=== PATIENT | female | born 1965 | race Caucasian/White ===

== ENCOUNTER 2017-06-15 14:13 | Emergency (ER) | payer MEDICAID, OTHER ==
[~2017-06-15] VITALS: Ht 154.9 cm; Wt 96.2 kg
[2017-06-15 15:41] VITALS: BP 127/79
[2017-06-15] MEDS ORDERED: KETOROLAC TROMETH 60MG/2ML VIAL IM ONE (16:00)
[2017-06-15] MEDS ORDERED: MEPERIDINE HCL (50 MG/ML) 1 ML VIAL IM ONE (17:00)
[2017-06-15] MEDS ORDERED: PROMETHAZINE HCL 25 MG/ML 1ML IM ONE (17:00)
== END 2017-06-15 17:41 | disposition home or self-care (01) ==
LOC: ER 14:21
DX: S16.1XXA Strain of muscle, fascia and tendon at neck level, initial encounter (principal); S76.012A Strain of muscle, fascia and tendon of left hip, initial encounter; S80.01XA Contusion of right knee, initial encounter; F17.210 Nicotine dependence, cigarettes, uncomplicated; Z88.8 Allergy status to other drugs, medicaments and biological substances; W01.0XXA Fall on same level from slipping, tripping and stumbling without subsequent striking against object, initial encounter; Y93.89 Activity, other specified; Y99.8 Other external cause status; Y92.89 Other specified places as the place of occurrence of the external cause
CPT/HCPCS: 72040; 73502; 96372; 99284; J1885; J2175; J2550

== ENCOUNTER 2017-11-04 13:36 | Inpatient (IN) | payer MEDICAID ==
[~2017-11-04] VITALS: Ht 154.9 cm; Wt 122.9 kg
[2017-11-04 14:27] LABS: Basophils # (auto) 0.1 uL; Eosinophils # (auto) 0.4 uL; Hemoglobin 11.6 g/dL (12.2-16.2); Lymphocytes # (auto) 2.4 uL; Monocytes # (auto) 0.4 uL; Neutrophils % (auto) 58.5 % (37.0-80.0); Nucleated Red Blood Cells % 0.1 %
[2017-11-04 14:29] LABS: Basophils % (auto) 1.1 % (0.0-2.0); Eosinophils % (auto) 4.7 % (0.0-7.0); Hematocrit 35.2 % (36.0-46.0); Lymphocytes % (auto) 30.4 % (10.0-50.0); Mean Corpuscular Hemoglobin 24.6 pg (28.0-32.0); Mean Corpuscular Hgb Conc. 32.9 g/dL (32.0-36.0); Mean Corpuscular Volume 74.6 fL (80.0-100.0); Monocytes % (auto) 5.3 % (0.0-12.0); Neutrophils # (auto) 4.6 uL; Platelet Count (auto) 288 10^3/uL (140-450); Red Blood Cells 4.71 10^6/uL (4.0-5.20); Red Cell Distribution Width 15.5 % (11.8-14.3); White Blood Cell 7.9 10^3/uL (4.4-10.8)
[2017-11-04 14:46] LABS: Albumin 3.5 g/dL (3.4-5.0); Bilirubin, Total 0.2 mg/dL (0.2-1.0); Calcium 8.3 mg/dL (8.5-10.1); Potassium 4.4 mmol/L (3.5-5.1); Total Protein 8.3 g/dL (6.4-8.2)
[2017-11-04] MEDS ORDERED: SODIUM CHLORIDE 0.9% 500 ML IV ONE (17:01)
[2017-11-04] MEDS ORDERED: FLEET ENEMA(ADULT) 135 ML PR ONE (17:15)
[2017-11-04] MEDS ORDERED: DEXTROSE (50%) 50ML SYRG IV PRN (17:45)
[2017-11-04] MEDS ORDERED: TEMAZEPAM 15 MG CAP PO PRN (17:45)
[2017-11-04] MEDS ORDERED: ACETAMINOPHEN 500 MG TAB PO PRN (17:45)
[2017-11-04] MEDS: SODIUM CHLORIDE 0.9% 1,000 ML IV SCH (18:07)
[2017-11-04 18:30] LABS: CRP High Sensitivity 0.88 mg/dL (< 0.3)
[2017-11-04 19:30] VITALS: BP 107/73
[2017-11-04 19:54] LABS: Urine Bacteria FEW /hpf (None Seen); Urine Blood Negative /uL (Negative); Urine Mucus FEW (None Seen); Urine WBC <1 /hpf (0 - 5)
[2017-11-04 21:58] LABS: Hematocrit 33.7 % (36.0-46.0)
[2017-11-04] MEDS: FAMOTIDINE 20 MG TAB PO SCH (22:08)
[2017-11-04] MEDS: LACTULOSE 20Gm/30ML SOLN PO SCH (22:08)
[2017-11-04] MEDS: InsuLIN REG 1unit/0.01ml Soln (100units/ml) SC SCH (22:24)
[2017-11-04] MEDS: ACCU-CHEK COMFORT CURVE STRIP VI SCH (22:24)
[2017-11-05] MEDS ORDERED: HYDR50TA69 PO (00:07)
[2017-11-05] MEDS ORDERED: SERT-160 PO (00:07)
[2017-11-05] MEDS ORDERED: METH750T3 PO (00:07)
[2017-11-05] MEDS ORDERED: OMEP20CA74 PO (00:07)
[2017-11-05] MEDS ORDERED: ASPI81TA27 PO (00:07)
[2017-11-05] MEDS ORDERED: [UNRECOGNIZED DRUG - CODE] PO (00:07)
[2017-11-05] MEDS ORDERED: CYCL1TAB18 PO (00:07)
[2017-11-05] MEDS ORDERED: GABA100C9 PO (00:07)
[2017-11-05] MEDS ORDERED: ATE50T PO (00:07)
[2017-11-05] MEDS ORDERED: OXCA600T3 PO (00:07)
[2017-11-05] MEDS ORDERED: GLIM2TAB33 PO (00:07)
[2017-11-05] MEDS ORDERED: MORP60TA25 PO (00:07)
[2017-11-05] MEDS ORDERED: ZIPR80CA8 PO (00:07)
[2017-11-05 00:16] VITALS: BP 107/73
[2017-11-05 01:52] LABS: Hemoglobin 10.8 g/dL (12.2-16.2)
[2017-11-05 01:54] LABS: Hematocrit 32.9 % (36.0-46.0)
[2017-11-05] MEDS: SODIUM CHLORIDE 0.9% 1,000 ML IV SCH ×3 (03:32→22:48)
[2017-11-05 05:00] VITALS: BP 108/68
[2017-11-05] MEDS: InsuLIN REG 1unit/0.01ml Soln (100units/ml) SC SCH ×4 (06:19→21:35)
[2017-11-05] MEDS: ACCU-CHEK COMFORT CURVE STRIP VI SCH ×4 (06:19→21:31)
[2017-11-05 08:02] LABS: Basophils # (auto) 0.1 uL; Neutrophils # (auto) 4.4 uL; Platelet Count (auto) 249 10^3/uL (140-450); Red Cell Distribution Width 15.2 % (11.8-14.3)
[2017-11-05 08:05] LABS: Basophils % (auto) 1.1 % (0.0-2.0); Eosinophils # (auto) 0.4 uL; Hematocrit 33.4 % (36.0-46.0); Lymphocytes % (auto) 28.4 % (10.0-50.0); Mean Corpuscular Hemoglobin 24.7 pg (28.0-32.0); Mean Corpuscular Hgb Conc. 32.8 g/dL (32.0-36.0); Mean Corpuscular Volume 75.3 fL (80.0-100.0); Monocytes # (auto) 0.3 uL; Monocytes % (auto) 4.6 % (0.0-12.0); Neutrophils % (auto) 60.9 % (37.0-80.0); Red Blood Cells 4.44 10^6/uL (4.0-5.20); White Blood Cell 7.2 10^3/uL (4.4-10.8)
[2017-11-05 09:00] VITALS: BP 109/66
[2017-11-05] MEDS: LACTULOSE 20Gm/30ML SOLN PO SCH ×2 (09:39→21:13)
[2017-11-05] MEDS: FAMOTIDINE 20 MG TAB PO SCH ×2 (09:39→21:14)
[2017-11-05] MEDS: MORPHINE SULFATE 4 MG/ML SYR/VIAL IV PRN ×2 (09:40→14:00)
[2017-11-05] MEDS: ZIPRASIDONE 60 MG PO SCH (10:00)
[2017-11-05 13:00] VITALS: BP 126/69
[2017-11-05] MEDS: LORazepam 0.5 MG TAB PO PRN (13:12)
[2017-11-05] MEDS: FLEET ENEMA(ADULT) 135 ML PR ONE ×2 (16:00→18:07)
[2017-11-05] MEDS: GOLYTELY 4L KIT PO ONE ×2 (16:00→18:07)
[2017-11-05] MEDS ORDERED: ASPirin-EC 81 mg tab PO ONE (16:00)
[2017-11-05 17:00] VITALS: BP 104/59
[2017-11-05] MEDS: LIDOCAINE 5% TOPICAL PATCH TOP SCH (18:07)
[2017-11-05] MEDS ORDERED: AMIT25TA9 PO (18:42)
[2017-11-05] MEDS ORDERED: CYCLOBENZAPRINE HCL 10 MG TAB PO PRN (20:00)
[2017-11-05] MEDS: AMITRIPTYLINE HCL 25 MG TAB PO SCH (21:13)
[2017-11-05] MEDS: GABAPENTIN 400 MG CAP PO SCH (21:13)
[2017-11-05] MEDS: METHOCARBAMOL 500 MG TAB PO SCH (21:14)
[2017-11-05] MEDS: OXcarbazepine 300 MG TAB PO SCH (21:14)
[2017-11-05] MEDS: MORPHINE SULF 30 mg ER tab PO SCH (21:14)
[2017-11-05 22:00] VITALS: BP 125/62
[2017-11-06] MEDS: HYDROmorphone HCL 2 MG TAB PO PRN ×3 (00:29→14:06)
[2017-11-06] MEDS: PROMETHAZINE HCL 25 MG/ML 1ML IV PRN ×3 (01:01→16:51)
[2017-11-06] MEDS: LORazepam 0.5 MG TAB PO PRN ×2 (05:06→18:16)
[2017-11-06 05:38] VITALS: BP 113/54
[2017-11-06] MEDS: METHOCARBAMOL 500 MG TAB PO SCH ×3 (06:23→22:08)
[2017-11-06] MEDS: InsuLIN REG 1unit/0.01ml Soln (100units/ml) SC SCH ×4 (06:23→22:09)
[2017-11-06] MEDS: ACCU-CHEK COMFORT CURVE STRIP VI SCH ×4 (06:24→22:09)
[2017-11-06 06:53] LABS: Basophils # (auto) 0.1 uL; Basophils % (auto) 0.9 % (0.0-2.0); Eosinophils # (auto) 0.4 uL; Hemoglobin 10.7 g/dL (12.2-16.2); Monocytes # (auto) 0.4 uL; Neutrophils % (auto) 54.4 % (37.0-80.0)
[2017-11-06 06:55] LABS: Eosinophils % (auto) 5.4 % (0.0-7.0); Hematocrit 32.6 % (36.0-46.0); Lymphocytes # (auto) 2.3 uL; Lymphocytes % (auto) 32.9 % (10.0-50.0); Mean Corpuscular Hemoglobin 24.5 pg (28.0-32.0); Mean Corpuscular Hgb Conc. 32.8 g/dL (32.0-36.0); Mean Corpuscular Volume 74.7 fL (80.0-100.0); Monocytes % (auto) 6.4 % (0.0-12.0); Neutrophils # (auto) 3.8 uL; Platelet Count (auto) 239 10^3/uL (140-450); Red Blood Cells 4.37 10^6/uL (4.0-5.20); Red Cell Distribution Width 15.4 % (11.8-14.3); White Blood Cell 6.9 10^3/uL (4.4-10.8)
[2017-11-06 07:08] LABS: BUN/Creatinine Ratio 13.3; Calcium 8.3 mg/dL (8.5-10.1); Potassium 3.8 mmol/L (3.5-5.1)
[2017-11-06 08:02] VITALS: BP 132/78
[2017-11-06] MEDS: OXcarbazepine 300 MG TAB PO SCH ×2 (09:07→22:08)
[2017-11-06] MEDS: ASPirin-EC 81 mg tab PO SCH (09:07)
[2017-11-06] MEDS: GABAPENTIN 400 MG CAP PO SCH ×2 (09:07→22:07)
[2017-11-06] MEDS: FAMOTIDINE 20 MG TAB PO SCH ×2 (09:08→22:08)
[2017-11-06] MEDS: LACTULOSE 20Gm/30ML SOLN PO SCH ×2 (09:08→22:06)
[2017-11-06] MEDS: SERTRALINE HCL 50 MG TAB PO SCH (09:08)
[2017-11-06] MEDS: LIDOCAINE 5% TOPICAL PATCH TOP SCH (09:08)
[2017-11-06] MEDS: GOLYTELY 4L KIT PO ONE ×2 (09:30→10:29)
[2017-11-06] MEDS ORDERED: FLEET ENEMA(ADULT) 135 ML PR ONE (09:30)
[2017-11-06] MEDS: SODIUM CHLORIDE 0.9% 1,000 ML IV SCH (09:32)
[2017-11-06] MEDS: ZIPRASIDONE 60 MG PO SCH ×3 (10:00→22:06)
[2017-11-06] MEDS: ATENOLOL 50MG TABLET PO SCH (10:00)
[2017-11-06 12:06] VITALS: BP 120/82
[2017-11-06] MEDS: HYDROcodone-ACET 5/325MG TAB PO PRN (16:53)
[2017-11-06 17:02] VITALS: BP 133/91
[2017-11-06 22:00] VITALS: BP 122/76
[2017-11-06] MEDS: SENNA 8.6 MG TAB PO SCH (22:08)
[2017-11-06] MEDS: MORPHINE SULF 30 mg ER tab PO SCH (22:08)
[2017-11-06] MEDS: AMITRIPTYLINE HCL 25 MG TAB PO SCH (22:20)
[2017-11-07] MEDS: SODIUM CHLORIDE 0.9% 1,000 ML IV SCH ×3 (00:05→15:32)
[2017-11-07] MEDS: LORazepam 0.5 MG TAB PO PRN ×3 (00:05→20:49)
[2017-11-07] MEDS: HYDROmorphone HCL 2 MG TAB PO PRN ×2 (00:27→06:28)
[2017-11-07 04:55] VITALS: BP 106/63
[2017-11-07] MEDS: HYDROcodone-ACET 5/325MG TAB PO PRN (05:33)
[2017-11-07] MEDS: METHOCARBAMOL 500 MG TAB PO SCH ×3 (06:26→22:30)
[2017-11-07] MEDS: InsuLIN REG 1unit/0.01ml Soln (100units/ml) SC SCH ×4 (06:27→22:31)
[2017-11-07 06:58] LABS: Basophils # (auto) 0.1 uL; Basophils % (auto) 1.2 % (0.0-2.0); Eosinophils # (auto) 0.4 uL; Hemoglobin 10.8 g/dL (12.2-16.2); Lymphocytes # (auto) 2.2 uL; Red Blood Cells 4.35 10^6/uL (4.0-5.20)
[2017-11-07] MEDS: ACCU-CHEK COMFORT CURVE STRIP VI SCH ×4 (07:00→22:32)
[2017-11-07 07:01] LABS: Eosinophils % (auto) 5.5 % (0.0-7.0); Hematocrit 32.4 % (36.0-46.0); Lymphocytes % (auto) 33.7 % (10.0-50.0); Mean Corpuscular Hemoglobin 24.9 pg (28.0-32.0); Mean Corpuscular Hgb Conc. 33.4 g/dL (32.0-36.0); Mean Corpuscular Volume 74.5 fL (80.0-100.0); Monocytes # (auto) 0.4 uL; Monocytes % (auto) 5.6 % (0.0-12.0); Neutrophils # (auto) 3.5 uL; Nucleated Red Blood Cells % 0.2 %; Platelet Count (auto) 226 10^3/uL (140-450); Red Cell Distribution Width 15.1 % (11.8-14.3); White Blood Cell 6.5 10^3/uL (4.4-10.8)
[2017-11-07 07:03] LABS: BUN/Creatinine Ratio 10.9; Calcium 8.6 mg/dL (8.5-10.1)
[2017-11-07 08:00] VITALS: BP 132/79
[2017-11-07] MEDS ORDERED: LACT10SO3 PO (08:21)
[2017-11-07] MEDS ORDERED: SENN-51 PO (08:21)
[2017-11-07] MEDS: ZIPRASIDONE 60 MG PO SCH ×2 (10:00→22:00)
[2017-11-07] MEDS: ATENOLOL 50MG TABLET PO SCH (10:00)
[2017-11-07] MEDS: GABAPENTIN 400 MG CAP PO SCH ×2 (10:30→22:29)
[2017-11-07] MEDS: LIDOCAINE 5% TOPICAL PATCH TOP SCH (10:30)
[2017-11-07] MEDS: FAMOTIDINE 20 MG TAB PO SCH ×2 (10:30→22:30)
[2017-11-07] MEDS: LACTULOSE 20Gm/30ML SOLN PO SCH ×2 (10:30→22:28)
[2017-11-07] MEDS: ASPirin-EC 81 mg tab PO SCH (10:30)
[2017-11-07] MEDS: SERTRALINE HCL 50 MG TAB PO SCH (10:30)
[2017-11-07] MEDS: OXcarbazepine 300 MG TAB PO SCH ×2 (10:31→22:31)
[2017-11-07] MEDS ORDERED: GOLYTELY 4L KIT PO ONE (11:15)
[2017-11-07 12:00] VITALS: BP 128/82
[2017-11-07 12:53] LABS: INR 0.94 (0.9-1.15); Partial Thromboplastin Time 24.3 sec (22.64-33.71); Prothrombin Time 10.2 sec (9.37-12.3)
[2017-11-07 17:00] VITALS: BP 96/61
[2017-11-07 21:57] VITALS: BP 127/77
[2017-11-07] MEDS: AMITRIPTYLINE HCL 25 MG TAB PO SCH (22:29)
[2017-11-07] MEDS: MORPHINE SULF 30 mg ER tab PO SCH (22:29)
[2017-11-07] MEDS: SENNA 8.6 MG TAB PO SCH (22:31)
[2017-11-08] MEDS: SODIUM CHLORIDE 0.9% 1,000 ML IV SCH (01:32)
[2017-11-08 05:39] VITALS: BP 139/77
[2017-11-08] MEDS: METHOCARBAMOL 500 MG TAB PO SCH (06:53)
[2017-11-08] MEDS: InsuLIN REG 1unit/0.01ml Soln (100units/ml) SC SCH ×2 (06:53→11:30)
[2017-11-08] MEDS: ACCU-CHEK COMFORT CURVE STRIP VI SCH ×2 (06:54→11:30)
[2017-11-08 07:17] LABS: Basophils # (auto) 0.1 uL; Hemoglobin 11.3 g/dL (12.2-16.2); Lymphocytes # (auto) 1.7 uL; Mean Corpuscular Hgb Conc. 32.3 g/dL (32.0-36.0); Mean Corpuscular Volume 74.8 fL (80.0-100.0)
[2017-11-08 07:20] LABS: Basophils % (auto) 0.4 % (0.0-2.0); Eosinophils # (auto) 0.3 uL; Eosinophils % (auto) 1.7 % (0.0-7.0); Hematocrit 34.8 % (36.0-46.0); Lymphocytes % (auto) 10.3 % (10.0-50.0); Mean Corpuscular Hemoglobin 24.1 pg (28.0-32.0); Monocytes # (auto) 0.6 uL; Monocytes % (auto) 3.7 % (0.0-12.0); Neutrophils # (auto) 13.8 uL; Neutrophils % (auto) 83.9 % (37.0-80.0); Platelet Count (auto) 274 10^3/uL (140-450); Red Blood Cells 4.66 10^6/uL (4.0-5.20); Red Cell Distribution Width 15.2 % (11.8-14.3); White Blood Cell 16.5 10^3/uL (4.4-10.8)
[2017-11-08 07:30] LABS: BUN/Creatinine Ratio 9.2; Calcium 9.1 mg/dL (8.5-10.1); Potassium 4.1 mmol/L (3.5-5.1)
[2017-11-08 08:51] VITALS: BP 134/77
[2017-11-08] MEDS: FAMOTIDINE 20 MG TAB PO SCH (10:00)
[2017-11-08] MEDS: ATENOLOL 50MG TABLET PO SCH (10:00)
[2017-11-08] MEDS: ZIPRASIDONE 60 MG PO SCH (10:00)
[2017-11-08] MEDS: LACTULOSE 20Gm/30ML SOLN PO SCH (10:00)
[2017-11-08] MEDS: GABAPENTIN 400 MG CAP PO SCH (10:00)
[2017-11-08] MEDS ORDERED: fentaNYL CITRATE 100 MCG/2 ML VL ONE (11:49)
[2017-11-08] MEDS ORDERED: MEPERIDINE HCL (50 MG/ML) 1 ML VIAL ONE (11:49)
[2017-11-08] MEDS ORDERED: MIDAZOLAM HCL 1MG/1ML-2 ML VIAL ONE (11:49)
[2017-11-08] MEDS ORDERED: DEXAMETHASONE SOD PHOS 10MG/1ML VIAL INJ ONE (11:50)
[2017-11-08] MEDS ORDERED: PROPOFOL 10 MG/ML 20 ML IV ONE (11:50)
[2017-11-08 12:28] VITALS: BP 134/77
[2017-11-08] MEDS ORDERED: ePHEDrine SULFATE 50 MG/ML AMP IV PRN (12:30)
[2017-11-08] MEDS ORDERED: MIDAZOLAM HCL 1MG/1ML-2 ML VIAL IV PRN (12:30)
[2017-11-08] MEDS ORDERED: MORPHINE SULFATE 4 MG/ML SYR/VIAL IV PRN (12:30)
[2017-11-08] MEDS ORDERED: KETOROLAC TROMETH 30 MG/ML 1ML VIAL IV ONE (12:30)
[2017-11-08] MEDS ORDERED: LABETALOL HCL 5 MG/ML 4ML SYRINGE IV PRN (12:30)
[2017-11-08] MEDS ORDERED: ONDANSETRON HCL 4 MG/2 ML VIAL IV ONE (12:30)
[2017-11-08 13:00] VITALS: BP 128/76
[2017-11-08] MEDS ORDERED: MORPHINE SULFATE 4 MG/ML SYR/VIAL IV ONE (14:00)
== END 2017-11-08 15:00 | disposition home or self-care (01) | DRG 254 ==
LOC: ER 13:36 → EAST 13:37 → ER 18:27 → EAST 18:28
PROVIDERS: ADMIT Internal Medicine; ATTEND Internal Medicine
PROC: 0DJD8ZZ Inspection of Lower Intestinal Tract, Via Natural or Artificial Opening Endoscopic (ICD-10-PCS; principal; 2017-11-08 11:42)
DX: K59.03 Drug induced constipation (principal); I10 Essential (primary) hypertension; E11.9 Type 2 diabetes mellitus without complications; T40.605A Adverse effect of unspecified narcotics, initial encounter; G89.29 Other chronic pain; F17.210 Nicotine dependence, cigarettes, uncomplicated; M54.9 Dorsalgia, unspecified; F12.90 Cannabis use, unspecified, uncomplicated; M19.012 Primary osteoarthritis, left shoulder; K92.1 Melena; F41.9 Anxiety disorder, unspecified; G47.00 Insomnia, unspecified; K64.8 Other hemorrhoids; Z79.4 Long term (current) use of insulin; Z88.8 Allergy status to other drugs, medicaments and biological substances; Z90.49 Acquired absence of other specified parts of digestive tract; Z90.89 Acquired absence of other organs; Z98.51 Tubal ligation status; Y92.89 Other specified places as the place of occurrence of the external cause
CPT/HCPCS: 36415; 36600; 45378; 73030; 74176; 80048; 80053; 81001; 82150; 82805; 82962; 83036; 83690; 85014; 85018; 85025; 85610; 85652; 85730; 86141; 94761; 96360; J1100; J1815; J2250; J2704

== ENCOUNTER 2017-12-08 11:25 | Emergency (ER) | payer MEDICAID ==
[~2017-12-08] VITALS: Ht 154.9 cm; Wt 89.8 kg
[~2017-12-08 11:25] MED LIST: AMIT25TA9 PO; ASPI81TA27 PO; ATE50T PO; CYCL1TAB18 PO; GABA100C9 PO; GLIM2TAB33 PO; HYDR50TA69 PO; LACT10SO3 PO; METH750T3 PO; MORP60TA25 PO; OMEP20CA74 PO; OXCA600T3 PO; SENN-51 PO; SERT-160 PO; ZIPR80CA8 PO; [UNRECOGNIZED DRUG - CODE] PO
[2017-12-08 13:45] VITALS: BP 101/71
== END 2017-12-08 13:16 | disposition home or self-care (01) ==
LOC: ER 11:25
DX: L03.115 Cellulitis of right lower limb (principal); E11.9 Type 2 diabetes mellitus without complications; I10 Essential (primary) hypertension; F17.210 Nicotine dependence, cigarettes, uncomplicated; E78.5 Hyperlipidemia, unspecified; E07.9 Disorder of thyroid, unspecified; Z79.899 Other long term (current) drug therapy; Z79.82 Long term (current) use of aspirin; Z90.49 Acquired absence of other specified parts of digestive tract; Z98.51 Tubal ligation status
CPT/HCPCS: 73630

== ENCOUNTER 2017-12-24 13:53 | Emergency (ER) | payer MEDICAID ==
[~2017-12-24] VITALS: Ht 154.9 cm; Wt 89.8 kg
[2017-12-24 14:24] LABS: Basophils # (auto) 0.1 uL; Eosinophils # (auto) 0.6 uL; Monocytes # (auto) 0.4 uL
[2017-12-24 14:25] LABS: Eosinophils % (auto) 6.3 % (0.0-7.0); Hematocrit 36.3 % (36.0-46.0); Hemoglobin 11.9 g/dL (12.2-16.2); Lymphocytes # (auto) 2.5 uL; Lymphocytes % (auto) 26.3 % (10.0-50.0); Mean Corpuscular Hemoglobin 24.5 pg (28.0-32.0); Mean Corpuscular Hgb Conc. 32.7 g/dL (32.0-36.0); Mean Corpuscular Volume 75.1 fL (80.0-100.0); Monocytes % (auto) 4.3 % (0.0-12.0); Neutrophils # (auto) 5.9 uL; Neutrophils % (auto) 62.1 % (37.0-80.0); Platelet Count (auto) 307 10^3/uL (140-450); Red Blood Cells 4.84 10^6/uL (4.0-5.20); Red Cell Distribution Width 15.4 % (11.8-14.3); White Blood Cell 9.5 10^3/uL (4.4-10.8)
[2017-12-24 14:45] LABS: Albumin 3.6 g/dL (3.4-5.0); BUN/Creatinine Ratio 12.7; Bilirubin, Total 0.3 mg/dL (0.2-1.0); Calcium 8.5 mg/dL (8.5-10.1); Potassium 3.9 mmol/L (3.5-5.1); Total Protein 8.3 g/dL (6.4-8.2)
[2017-12-24] MEDS ORDERED: MEPERIDINE HCL (25 MG/ML) 1ML VIAL IV ONE (19:15)
[2017-12-24] MEDS ORDERED: ONDANSETRON HCL 4 MG/2 ML VIAL IV ONE (19:15)
[2017-12-24] MEDS ORDERED: CLINDAMYCIN 600MG IV 50 ML IV ONE (19:15)
[2017-12-24 20:55] VITALS: BP 96/60
== END 2017-12-24 21:10 | disposition home or self-care (01) ==
LOC: ER 13:53
DX: S91.301A Unspecified open wound, right foot, initial encounter (principal); L08.89 Other specified local infections of the skin and subcutaneous tissue; F41.9 Anxiety disorder, unspecified; I10 Essential (primary) hypertension; E03.9 Hypothyroidism, unspecified; E78.00 Pure hypercholesterolemia, unspecified; E11.9 Type 2 diabetes mellitus without complications; G89.29 Other chronic pain; F12.10 Cannabis abuse, uncomplicated; F17.210 Nicotine dependence, cigarettes, uncomplicated; F11.20 Opioid dependence, uncomplicated; X58.XXXA Exposure to other specified factors, initial encounter; Y93.89 Activity, other specified; Y99.8 Other external cause status; Y92.89 Other specified places as the place of occurrence of the external cause
CPT/HCPCS: 36415; 73630; 80053; 82962; 85025; 96365; 96375; 99285; J2175; J2405; J3490; L3260

== ENCOUNTER 2018-01-16 11:33 | Emergency (ER) | payer MEDICAID, OTHER ==
[~2018-01-16] VITALS: Ht 162.6 cm; Wt 90.7 kg
[2018-01-16] MEDS ORDERED: KETOROLAC TROMETH 30 MG/ML 1ML VIAL IV ONE (12:00)
[2018-01-16 12:34] LABS: Basophils # (auto) 0.1 uL; Eosinophils # (auto) 0.4 uL; Lymphocytes # (auto) 2.2 uL; Lymphocytes % (auto) 21.1 % (10.0-50.0); Mean Corpuscular Hemoglobin 24.2 pg (28.0-32.0)
[2018-01-16 12:37] LABS: Basophils % (auto) 1.1 % (0.0-2.0); Eosinophils % (auto) 3.5 % (0.0-7.0); Hematocrit 34.3 % (36.0-46.0); Mean Corpuscular Hgb Conc. 32.1 g/dL (32.0-36.0); Mean Corpuscular Volume 75.4 fL (80.0-100.0); Monocytes # (auto) 0.5 uL; Monocytes % (auto) 4.6 % (0.0-12.0); Neutrophils # (auto) 7.2 uL; Neutrophils % (auto) 69.7 % (37.0-80.0); Nucleated Red Blood Cells % 0.1 %; Platelet Count (auto) 280 10^3/uL (140-450); Red Blood Cells 4.55 10^6/uL (4.0-5.20); White Blood Cell 10.3 10^3/uL (4.4-10.8)
[2018-01-16 12:48] LABS: Albumin 3.4 g/dL (3.4-5.0); Anion Gap 8 (5-15); Blood Urea Nitrogen 13 mg/dL (7-18); Calcium 8.4 mg/dL (8.5-10.1); Carbon Dioxide 28 mmol/L (21-32); Chloride 103 mmol/L (98-107); Glucose 60 mg/dL (74-106); Potassium 4.4 mmol/L (3.5-5.1); Sodium 139 mmol/L (136-145)
[2018-01-16 12:50] LABS: BUN/Creatinine Ratio 16.9; GFR African American 102 mL/min; GFR Non-African American 84 mL/min
[2018-01-16 12:55] LABS: Alanine Aminotransferase 16 U/L (13-56); Alkaline Phosphatase 85 U/L (45-117); Aspartate Aminotransferase 18 U/L (15-37); Bilirubin, Total 0.3 mg/dL (0.2-1.0); Total Protein 8.2 g/dL (6.4-8.2)
[2018-01-16 14:00] VITALS: BP 97/61
== END 2018-01-16 14:36 | disposition home or self-care (01) ==
LOC: EDBD 11:33 → ER 11:33
DX: R55 Syncope and collapse (principal); F17.210 Nicotine dependence, cigarettes, uncomplicated; F12.10 Cannabis abuse, uncomplicated; E11.9 Type 2 diabetes mellitus without complications; E78.5 Hyperlipidemia, unspecified; I10 Essential (primary) hypertension; E07.89 Other specified disorders of thyroid; Z90.89 Acquired absence of other organs; Z98.51 Tubal ligation status; Z79.899 Other long term (current) drug therapy
CPT/HCPCS: 36415; 70450; 72125; 80053; 84484; 85025; 93005; 94761; 96374; 99285; J1885

== ENCOUNTER 2019-10-25 00:08 | Emergency (ER) | payer MEDICAID ==
[~2019-10-25] VITALS: Ht 152.4 cm; Wt 98.0 kg
[~2019-10-25 00:08] MED LIST changes: +ASPI-404 PO; -ASPI81TA27 PO; +MORP1TAB14 PO; -MORP60TA25 PO
[2019-10-25 01:40] LABS: Basophils # (auto) 0.1 uL; Lymphocytes # (auto) 2.3 uL; Monocytes # (auto) 0.4 uL; Neutrophils # (auto) 7.1 uL; Red Cell Distribution Width 16.7 % (11.8-14.3); White Blood Cell 10.1 10^3/uL (4.4-10.8)
[2019-10-25 01:42] LABS: Basophils % (auto) 0.8 % (0.0-2.0); Eosinophils # (auto) 0.2 uL; Eosinophils % (auto) 2.4 % (0.0-7.0); Hematocrit 30.1 % (36.0-46.0); Hemoglobin 9.6 g/dL (12.2-16.2); Lymphocytes % (auto) 22.7 % (10.0-50.0); Mean Corpuscular Hemoglobin 22.6 pg (28.0-32.0); Mean Corpuscular Volume 70.8 fL (80.0-100.0); Monocytes % (auto) 4.1 % (0.0-12.0); Nucleated Red Blood Cells % 0.1 %; Platelet Count (auto) 250 10^3/uL (140-450); Red Blood Cells 4.25 10^6/uL (4.0-5.20)
[2019-10-25 01:57] LABS: Albumin 3.4 g/dL (3.4-5.0); Calcium 7.9 mg/dL (8.5-10.1); Potassium 3.9 mmol/L (3.5-5.1)
[2019-10-25 01:59] LABS: BUN/Creatinine Ratio 8.8
[2019-10-25 02:02] LABS: Bilirubin, Total 0.3 mg/dL (0.2-1.0); Total Protein 7.8 g/dL (6.4-8.2)
[2019-10-25] MEDS ORDERED: FLEET MINERAL OIL ENEMA 133 ML PR ONE (07:30)
[2019-10-25 08:00] VITALS: BP 139/81
[2019-10-25] MEDS ORDERED: IBUPROFEN 800 MG TAB PO ONE (08:15)
== END 2019-10-25 08:44 | disposition home or self-care (01) ==
LOC: ER 00:08
DX: K59.00 Constipation, unspecified (principal); G89.4 Chronic pain syndrome; E11.9 Type 2 diabetes mellitus without complications; E78.5 Hyperlipidemia, unspecified; I10 Essential (primary) hypertension; Z98.51 Tubal ligation status; Z79.899 Other long term (current) drug therapy
CPT/HCPCS: 36415; 74176; 80053; 85025

== ENCOUNTER 2023-05-29 17:07 | Inpatient (IN) | payer MEDICAID ==
[~2023-05-29] VITALS: Ht 162.6 cm; Wt 79.5 kg
[~2023-05-29 17:07] MED LIST changes: +AMIT25TA20 PO; -AMIT25TA9 PO; -ASPI-404 PO; +ASPI-543 PO; +CYCL-839 PO; -CYCL1TAB18 PO; +GABA-1308 PO; -GABA100C9 PO; +METH-1182 PO; -METH750T3 PO; +SENN-105 PO; -SENN-51 PO; +ZIPR80CA37 PO; -ZIPR80CA8 PO
[2023-05-29] MEDS ORDERED: SODIUM CHLORIDE 0.9% 500 ML IVB ONE (17:30)
[2023-05-29 18:11] LABS: Basophils # (auto) 0.1 10 ^3/uL (0-0.2); Basophils % (auto) 0.8 % (0.0-2.0); Eosinophils # (auto) 0.2 10 ^3/uL (0-0.8); Eosinophils % (auto) 2.1 % (0.0-7.0); Hematocrit 39.9 % (36.0-46.0); Hemoglobin 13.3 g/dL (12.2-16.2); Lymphocytes # (auto) 2.4 10 ^3/uL (0.4-5.4); Lymphocytes % (auto) 29.4 % (10.0-50.0); Mean Corpuscular Hemoglobin 29.3 pg (28.0-32.0); Mean Corpuscular Hgb Conc. 33.3 g/dL (32.0-36.0); Mean Corpuscular Volume 88.1 fL (80.0-100.0); Monocytes # (auto) 0.4 10 ^3/uL (0-1.3); Monocytes % (auto) 4.4 % (0.0-12.0); Neutrophils # (auto) 5.1 10 ^3/uL (1.6-8.6); Neutrophils % (auto) 63.3 % (37.0-80.0); Nucleated Red Blood Cells % 0.2 %; Red Blood Cells 4.53 10^6/uL (4.0-5.20); Red Cell Distribution Width 13.2 % (11.8-14.3); White Blood Cell 8.1 10^3/uL (4.4-10.8)
[2023-05-29 18:27] LABS: Lactic Acid w/Reflex 3.9 mmol/L (0.4-2.0)
[2023-05-29 18:28] LABS: Alanine Aminotransferase 14 U/L (7-40); Alkaline Phosphatase 40 U/L (46-116); Anion Gap 10.8 (5-15); Aspartate Aminotransferase 15 U/L (13-40); BUN/Creatinine Ratio 13.1 (10.0-20.0); Blood Alcohol < 3.0 mg/dL (<10); Blood Urea Nitrogen 16 mg/dL (9-23); Calcium 8.5 mg/dL (8.7-10.4); Carbon Dioxide 22.2 mmol/L (20-30); Chloride 109 mmol/L (98-107); Glucose 94 mg/dL (74-106); Sodium 142 mmol/L (136-145)
[2023-05-29 18:29] LABS: Bilirubin, Total 0.3 mg/dL (0.2-1.0); Total Protein 6.3 g/dL (5.7-8.2)
[2023-05-29 22:06] VITALS: PULSE 77; RESP 13; O2SAT 97
[2023-05-29] MEDS ORDERED: SODIUM CHLORIDE 0.9% 1,000 ML IV ONE (22:30)
[2023-05-29 22:56] LABS: Amphetamine Screen, Urine Neg (NEGATIVE); Barbiturate Scree,Urine Neg (NEGATIVE); Benzodiazephine Screen, Urine Neg (NEGATIVE); Cocaine Screen, Urine Neg (NEGATIVE); Opiate Scree,Urine Pos (NEGATIVE)
[2023-05-29 22:57] LABS: Cannabinoid Screen, Urine Pos (NEGATIVE); Phencyclidine Screen, Urine Neg (NEGATIVE)
[2023-05-29 23:08] LABS: Urine Bacteria MANY /hpf (None Seen); Urine Blood Negative /uL (Negative); Urine Budding Yeast LOADED /hpf (None Seen); Urine Clarity HAZY (Clear); Urine Color Yellow (Yellow); Urine Mucus FEW (None Seen); Urine Protein, UAD 1+ (Negative); Urine Specific Gravity 1.024 (1.001-1.035); Urine Urobilinogen Normal (Negative); Urine WBC 49 /hpf (0 - 5); Urine pH 5.5 (5.0-8.0)
[2023-05-29] MEDS ORDERED: NITROGLYCERIN 0.4 MG SL TAB SL PRN (23:30)
[2023-05-29] MEDS ORDERED: ACETAMINOPHEN 325 MG TAB PO PRN (23:30)
[2023-05-29] MEDS ORDERED: cefTRIAXone 1GM/50ML D5W 50 ML IV ONE (23:30)
[2023-05-29] MEDS ORDERED: MORPHINE SULFATE INJ 2 MG/ml SYRG IV PRN (23:30)
[2023-05-29] MEDS ORDERED: DEXTROSE (50%) 50ML SYRG IV PRN (23:30)
[2023-05-29] MEDS ORDERED: NALOXONE HCL 0.4 MG/ML VIAL IV ONE (23:30)
[2023-05-29] MEDS ORDERED: ALBUMIN 5% 250 ML IV ONE (23:30)
[2023-05-29] MEDS: SODIUM CHLORIDE 0.9% 1,000 ML IV SCH (23:45)
[2023-05-29 23:54] LABS: Base Excess -4.6 mmol/L (-2.0-2.0)
[2023-05-30] MEDS: ACCU-CHEK COMFORT CURVE STRIP VI SCH ×5 (00:23→21:43)
[2023-05-30] MEDS: ONDANSETRON HCL 4 MG/2 ML VIAL IV PRN (01:47)
[2023-05-30] MEDS: InsuLIN REG 1unit/0.01ml Soln (100units/ml) SC SCH ×5 (06:00→21:43)
[2023-05-30 06:21] LABS: Basophils # (auto) 0.1 10 ^3/uL (0-0.2); Basophils % (auto) 0.6 % (0.0-2.0); Eosinophils # (auto) 0.1 10 ^3/uL (0-0.8); Eosinophils % (auto) 1.4 % (0.0-7.0); Hematocrit 38.2 % (36.0-46.0); Hemoglobin 12.8 g/dL (12.2-16.2); Lymphocytes # (auto) 2.1 10 ^3/uL (0.4-5.4); Lymphocytes % (auto) 24.1 % (10.0-50.0); Mean Corpuscular Hemoglobin 29.5 pg (28.0-32.0); Mean Corpuscular Hgb Conc. 33.5 g/dL (32.0-36.0); Monocytes # (auto) 0.4 10 ^3/uL (0-1.3); Monocytes % (auto) 4.3 % (0.0-12.0); Neutrophils # (auto) 6.1 10 ^3/uL (1.6-8.6); Neutrophils % (auto) 69.6 % (37.0-80.0); Nucleated Red Blood Cells % 0.1 %; Red Blood Cells 4.34 10^6/uL (4.0-5.20); White Blood Cell 8.7 10^3/uL (4.4-10.8)
[2023-05-30 06:23] LABS: Albumin 3.8 g/dL (3.2-4.8); Alkaline Phosphatase 34 U/L (46-116); Anion Gap 6.5 (5-15); Aspartate Aminotransferase 10 U/L (13-40); BUN/Creatinine Ratio 11.3 (10.0-20.0); Blood Urea Nitrogen 11 mg/dL (9-23); Calcium 7.7 mg/dL (8.7-10.4); Carbon Dioxide 23.5 mmol/L (20-30); Chloride 112 mmol/L (98-107); Glucose 87 mg/dL (74-106); Potassium 4.1 mmol/L (3.5-5.1); Sodium 142 mmol/L (136-145)
[2023-05-30 06:24] LABS: Bilirubin, Total 0.4 mg/dL (0.2-1.0)
[2023-05-30 06:31] LABS: Alanine Aminotransferase 9 U/L (7-40)
[2023-05-30 07:53] VITALS: PULSE 88; RESP 18; O2SAT 95
[2023-05-30] MEDS: cefTRIAXone 1GM/50ML D5W 50 ML IV SCH (09:07)
[2023-05-30] MEDS ORDERED: DULO60CA41 PO (12:36)
[2023-05-30] MEDS ORDERED: LEVO25TA6 PO (12:36)
[2023-05-30] MEDS ORDERED: PANT40TA2 PO (12:36)
[2023-05-30] MEDS ORDERED: HYDR50TA69 PO (12:36)
[2023-05-30] MEDS ORDERED: LEV50T PO (12:36)
[2023-05-30] MEDS ORDERED: HYDR2TAB58 PO (12:36)
[2023-05-30] MEDS ORDERED: METF-372 PO (12:36)
[2023-05-30] MEDS ORDERED: ATO40T PO (12:40)
[2023-05-30] MEDS ORDERED: ZOFR4T PO (12:47)
[2023-05-30] MEDS ORDERED: GABA-339 PO (12:47)
[2023-05-30] MEDS ORDERED: PRA1C PO (12:47)
[2023-05-30] MEDS ORDERED: MORP30TA PO (12:47)
[2023-05-30] MEDS ORDERED: EMPA1TAB PO (12:47)
[2023-05-30] MEDS: SODIUM CHLORIDE 0.9% 1,000 ML IV SCH (12:56)
[2023-05-30 14:39] VITALS: BP 105/77; PULSE 89; RESP 22; TEMP 98.1; O2SAT 95
[2023-05-30 14:51] VITALS: BP 105/77; PULSE 89; RESP 22; TEMP 98.1; O2SAT 95
[2023-05-30] MEDS ORDERED: MORPHINE SULFATE INJ 2 MG/ml SYRG IV PRN (16:45)
[2023-05-30] MEDS ORDERED: LACTULOSE 20Gm/30ML SOLN PO PRN (16:45)
[2023-05-30] MEDS ORDERED: SENNA 8.6 MG TAB PO PRN (16:45)
[2023-05-30] MEDS ORDERED: LEVOTHYROXINE SODIUM 50 MCG TAB PO ONE (16:45)
[2023-05-30 17:00] VITALS: BP 139/81; PULSE 83; RESP 20; TEMP 98.6; O2SAT 95
[2023-05-30] MEDS ORDERED: MAGNESIUM SULFATE 1GM/100ML 100 ML IV ONE (21:00)
[2023-05-30] MEDS ORDERED: DEXTROSE (50%) 50ML SYRG IV PRN (21:00)
[2023-05-30] MEDS: MORPHINE SULF 30 mg ER tab PO SCH (21:42)
[2023-05-30] MEDS: OXcarbazepine 300 MG TAB PO SCH (21:42)
[2023-05-30] MEDS: GABAPENTIN 400 MG CAP PO SCH (21:42)
[2023-05-30] MEDS: ZIPRASIDONE 60 MG CAPSULE PO SCH (21:43)
[2023-05-30 22:00] VITALS: BP 132/76; PULSE 85; RESP 19; TEMP 98; O2SAT 92
[2023-05-30] MEDS: traMADol HCL 50 MG TAB PO PRN (22:42)
[2023-05-31 05:00] VITALS: BP 133/74; PULSE 83; RESP 19; TEMP 98; O2SAT 98
[2023-05-31] MEDS: traMADol HCL 50 MG TAB PO PRN (05:28)
[2023-05-31] MEDS: SODIUM CHLORIDE 0.9% 1,000 ML IV SCH ×3 (05:28→19:46)
[2023-05-31 05:57] LABS: Basophils # (auto) 0 10 ^3/uL (0-0.2); Basophils % (auto) 0.4 % (0.0-2.0); Eosinophils # (auto) 0.1 10 ^3/uL (0-0.8); Eosinophils % (auto) 1.3 % (0.0-7.0); Hematocrit 38.6 % (36.0-46.0); Hemoglobin 13.1 g/dL (12.2-16.2); Lymphocytes # (auto) 2.7 10 ^3/uL (0.4-5.4); Lymphocytes % (auto) 33.3 % (10.0-50.0); Mean Corpuscular Hemoglobin 29.6 pg (28.0-32.0); Mean Corpuscular Volume 87.1 fL (80.0-100.0); Monocytes # (auto) 0.5 10 ^3/uL (0-1.3); Monocytes % (auto) 5.8 % (0.0-12.0); Neutrophils # (auto) 4.7 10 ^3/uL (1.6-8.6); Neutrophils % (auto) 59.2 % (37.0-80.0); Red Blood Cells 4.43 10^6/uL (4.0-5.20); Red Cell Distribution Width 12.9 % (11.8-14.3)
[2023-05-31 06:00] LABS: Chloride 107 mmol/L (98-107); Potassium 3.5 mmol/L (3.5-5.1); Sodium 140 mmol/L (136-145)
[2023-05-31 06:01] LABS: Anion Gap 9.2 (5-15); Calcium 8.2 mg/dL (8.7-10.4); Carbon Dioxide 23.8 mmol/L (20-30)
[2023-05-31 06:06] LABS: Glucose 74 mg/dL (74-106)
[2023-05-31 06:07] LABS: Magnesium 1.2 mg/dL (1.6-2.6)
[2023-05-31] MEDS: ACCU-CHEK COMFORT CURVE STRIP VI SCH ×4 (06:24→22:31)
[2023-05-31] MEDS: LEVOTHYROXINE SODIUM 50 MCG TAB PO SCH (06:24)
[2023-05-31] MEDS: InsuLIN REG 1unit/0.01ml Soln (100units/ml) SC SCH ×4 (06:30→22:31)
[2023-05-31 07:17] LABS: Blood Urea Nitrogen < 5 mg/dL (9-23)
[2023-05-31 08:00] VITALS: BP 148/72; PULSE 75; PULSE 85; RESP 21; TEMP 97.8; O2SAT 93
[2023-05-31 08:08] LABS: BUN/Creatinine Ratio 6.7 (10.0-20.0)
[2023-05-31] MEDS: MAGNESIUM SULFATE 1GM/100ML 100 ML IV SCH ×2 (08:36→09:00)
[2023-05-31] MEDS: ZIPRASIDONE 60 MG CAPSULE PO SCH ×2 (10:00→22:30)
[2023-05-31] MEDS: PANTOPRAZOLE 40 MG TAB PO SCH (10:34)
[2023-05-31] MEDS: GABAPENTIN 400 MG CAP PO SCH ×2 (10:34→22:30)
[2023-05-31] MEDS: ATENOLOL 50 MG TAB PO SCH (10:35)
[2023-05-31] MEDS: SERTRALINE HCL 50 MG TAB PO SCH (10:35)
[2023-05-31] MEDS: MORPHINE SULF 30 mg ER tab PO SCH ×2 (10:35→22:31)
[2023-05-31] MEDS: ASPirin 81 mg TAB PO SCH (10:35)
[2023-05-31] MEDS: OXcarbazepine 300 MG TAB PO SCH ×2 (10:35→22:31)
[2023-05-31] MEDS: cefTRIAXone 1GM/50ML D5W 50 ML IV SCH (11:00)
[2023-05-31 12:00] VITALS: BP 142/77; PULSE 94; RESP 21; TEMP 97.5; O2SAT 95
[2023-05-31] MEDS: metroNIDAZOLE 500MG/100ML 100 ML IV SCH ×2 (12:23→19:40)
[2023-05-31] MEDS: SENNA 8.6 MG TAB PO PRN (12:26)
[2023-05-31] MEDS: LACTULOSE 20Gm/30ML SOLN PO PRN (12:27)
[2023-05-31] MEDS: ONDANSETRON HCL 4 MG/2 ML VIAL IV PRN ×2 (13:04→20:05)
[2023-05-31] MEDS: DOCUSATE CALCIUM 240 MG CAP PO PRN (13:04)
[2023-05-31 16:00] VITALS: BP 142/81; PULSE 77; RESP 20; TEMP 97.4; O2SAT 94
[2023-05-31 22:00] VITALS: BP 137/92; PULSE 82; RESP 18; TEMP 98.1; O2SAT 94
[2023-06-01] MEDS: ONDANSETRON HCL 4 MG/2 ML VIAL IV PRN ×4 (00:50→22:53)
[2023-06-01] MEDS: metroNIDAZOLE 500MG/100ML 100 ML IV SCH ×3 (04:04→22:53)
[2023-06-01 05:00] VITALS: BP 142/82; PULSE 84; RESP 18; TEMP 97.7; O2SAT 95
[2023-06-01] MEDS: LEVOTHYROXINE SODIUM 50 MCG TAB PO SCH (06:19)
[2023-06-01] MEDS: ACCU-CHEK COMFORT CURVE STRIP VI SCH ×3 (06:19→17:32)
[2023-06-01] MEDS: InsuLIN REG 1unit/0.01ml Soln (100units/ml) SC SCH ×4 (06:23→22:00)
[2023-06-01 06:49] LABS: Chloride 107 mmol/L (98-107); Potassium 3.6 mmol/L (3.5-5.1); Sodium 138 mmol/L (136-145)
[2023-06-01 06:50] LABS: Anion Gap 8.7 (5-15); Calcium 8.2 mg/dL (8.5-10.1); Carbon Dioxide 22.3 mmol/L (20-30)
[2023-06-01 06:55] LABS: Glucose 72 mg/dL (74-106); Triglycerides 124 mg/dL (< 150)
[2023-06-01 06:56] LABS: LDL Cholesterol 67 mg/dL (< 100); Magnesium 1.1 mg/dL (1.6-2.6)
[2023-06-01 06:57] LABS: Cholesterol 127 mg/dL (< 200); HDL Cholesterol 40 mg/dL (40-59)
[2023-06-01 07:17] LABS: BUN/Creatinine Ratio 7.4 (10.0-20.0); Blood Urea Nitrogen < 5 mg/dL (9-23)
[2023-06-01 09:00] VITALS: BP 134/84; PULSE 88; RESP 18; TEMP 97.7; O2SAT 96
[2023-06-01] MEDS: cefTRIAXone 1GM/50ML D5W 50 ML IV SCH (09:11)
[2023-06-01] MEDS: traMADol HCL 50 MG TAB PO PRN ×2 (09:12→16:26)
[2023-06-01] MEDS ORDERED: FLEET ENEMA(ADULT) 135 ML PR ONE (09:30)
[2023-06-01] MEDS: ASPirin 81 mg TAB PO SCH (09:38)
[2023-06-01] MEDS: SERTRALINE HCL 50 MG TAB PO SCH (09:38)
[2023-06-01] MEDS: GABAPENTIN 400 MG CAP PO SCH (09:38)
[2023-06-01] MEDS: PANTOPRAZOLE 40 MG TAB PO SCH (09:38)
[2023-06-01] MEDS: OXcarbazepine 300 MG TAB PO SCH (09:39)
[2023-06-01] MEDS: MORPHINE SULF 30 mg ER tab PO SCH (09:39)
[2023-06-01] MEDS: amLODIPine BESYLATE 5 MG TAB PO SCH (09:39)
[2023-06-01] MEDS: ATENOLOL 50 MG TAB PO SCH (09:40)
[2023-06-01] MEDS: ZIPRASIDONE 60 MG CAPSULE PO SCH ×2 (09:59→22:00)
[2023-06-01] MEDS: SENNA 8.6 MG TAB PO PRN (10:13)
[2023-06-01] MEDS: LACTULOSE 20Gm/30ML SOLN PO PRN (10:13)
[2023-06-01] MEDS: DOCUSATE CALCIUM 240 MG CAP PO PRN (10:13)
[2023-06-01 13:00] VITALS: BP 156/88; PULSE 76; RESP 20; TEMP 98; O2SAT 97
[2023-06-01] MEDS ORDERED: ENOXAPARIN SOD 40 MG/0.4 ML SYRINGE SC ONE (14:15)
[2023-06-01 17:00] VITALS: BP 123/90; PULSE 63; RESP 18; TEMP 97.5; O2SAT 94
[2023-06-01] MEDS: MAGNESIUM SULFATE 1GM/100ML 100 ML IV SCH ×2 (17:32→19:41)
[2023-06-01] MEDS: SODIUM CHLORIDE 0.9% 1,000 ML IV SCH (17:33)
[2023-06-01 20:00] VITALS: O2SAT 95
[2023-06-01 22:00] VITALS: BP 120/65; PULSE 89; RESP 14; TEMP 98.2; O2SAT 96
[2023-06-02] VITALS (7 sets, daily range): BP systolic 124–139; BP diastolic 58–81; PULSE 78–99; RESP 16–20; TEMP 98.1–98.5; O2SAT 73–100
[2023-06-02] MEDS: GABAPENTIN 400 MG CAP PO SCH ×3 (00:27→22:52)
[2023-06-02] MEDS: ATORVASTATIN 20 MG TAB PO SCH ×2 (00:27→22:52)
[2023-06-02] MEDS: MORPHINE SULF 30 mg ER tab PO SCH ×3 (00:28→22:53)
[2023-06-02] MEDS: OXcarbazepine 300 MG TAB PO SCH ×3 (00:28→22:52)
[2023-06-02] MEDS: ACCU-CHEK COMFORT CURVE STRIP VI SCH ×5 (00:28→22:54)
[2023-06-02] MEDS: metroNIDAZOLE 500MG/100ML 100 ML IV SCH ×2 (05:11→12:30)
[2023-06-02] MEDS: ONDANSETRON HCL 4 MG/2 ML VIAL IV PRN ×2 (05:45→18:32)
[2023-06-02 06:39] LABS: Anion Gap 10.8 (5-15); Calcium 8.4 mg/dL (8.7-10.4); Carbon Dioxide 22.2 mmol/L (20-30); Chloride 103 mmol/L (98-107); Potassium 3.9 mmol/L (3.5-5.1); Sodium 136 mmol/L (136-145)
[2023-06-02 06:45] LABS: Glucose 66 mg/dL (74-106)
[2023-06-02 06:46] LABS: BUN/Creatinine Ratio 6.8 (10.0-20.0); Blood Urea Nitrogen < 5 mg/dL (9-23); Magnesium 1.3 mg/dL (1.6-2.6)
[2023-06-02] MEDS: LEVOTHYROXINE SODIUM 50 MCG TAB PO SCH (06:59)
[2023-06-02] MEDS: InsuLIN REG 1unit/0.01ml Soln (100units/ml) SC SCH ×4 (06:59→22:58)
[2023-06-02] MEDS: ZIPRASIDONE 60 MG CAPSULE PO SCH ×2 (10:00→22:00)
[2023-06-02] MEDS: MAGNESIUM SULFATE 1GM/100ML 100 ML IV SCH ×2 (10:11→13:35)
[2023-06-02] MEDS: ASPirin 81 mg TAB PO SCH (10:14)
[2023-06-02] MEDS: cefTRIAXone 1GM/50ML D5W 50 ML IV SCH (10:14)
[2023-06-02] MEDS: PANTOPRAZOLE 40 MG TAB PO SCH (10:16)
[2023-06-02] MEDS: amLODIPine BESYLATE 5 MG TAB PO SCH (10:16)
[2023-06-02] MEDS: ATENOLOL 50 MG TAB PO SCH (10:17)
[2023-06-02] MEDS: SERTRALINE HCL 50 MG TAB PO SCH (10:18)
[2023-06-02] MEDS: ENOXAPARIN SOD 40 MG/0.4 ML SYRINGE SC SCH (10:18)
[2023-06-02] MEDS: LACTULOSE 20Gm/30ML SOLN PO PRN (10:19)
[2023-06-02] MEDS: SODIUM CHLORIDE 0.9% 1,000 ML IV SCH (10:28)
[2023-06-02] MEDS ORDERED: MAGNESIUM SULFATE 1GM/100ML 100 ML IV SCH (13:00)
[2023-06-02] MEDS: traMADol HCL 50 MG TAB PO PRN (17:10)
[2023-06-02] MEDS ORDERED: FLEET ENEMA(ADULT) 135 ML PR ONE (17:30)
[2023-06-02] MEDS: metroNIDAZOLE 500 MG TAB PO SCH (22:51)
[2023-06-03] MEDS: ONDANSETRON HCL 4 MG/2 ML VIAL IV PRN ×2 (04:17→11:55)
[2023-06-03 05:00] VITALS: BP_SYST 105; BP_SYST 129; BP_DIAS 69; BP_DIAS 81; PULSE 83; PULSE 91; RESP 17; RESP 20; TEMP 98; TEMP 98.1; O2SAT 100; O2SAT 97
[2023-06-03] MEDS: InsuLIN REG 1unit/0.01ml Soln (100units/ml) SC SCH ×3 (07:00→17:00)
[2023-06-03] MEDS: LEVOTHYROXINE SODIUM 50 MCG TAB PO SCH (07:09)
[2023-06-03] MEDS: metroNIDAZOLE 500 MG TAB PO SCH ×4 (07:09→13:21)
[2023-06-03] MEDS: ACCU-CHEK COMFORT CURVE STRIP VI SCH ×3 (07:10→17:00)
[2023-06-03 08:00] VITALS: PULSE 86; RESP 17; O2SAT 96
[2023-06-03 09:00] VITALS: BP 120/74; PULSE 86; RESP 17; TEMP 98; O2SAT 96
[2023-06-03] MEDS: cefTRIAXone 1GM/50ML D5W 50 ML IV SCH (09:53)
[2023-06-03] MEDS: ZIPRASIDONE 60 MG CAPSULE PO SCH (10:00)
[2023-06-03] MEDS ORDERED: CLOTRIMAZOLE 1 % CREAM 15GM TOP SCH (10:00)
[2023-06-03] MEDS: GABAPENTIN 400 MG CAP PO SCH (10:04)
[2023-06-03] MEDS: ENOXAPARIN SOD 40 MG/0.4 ML SYRINGE SC SCH (10:04)
[2023-06-03] MEDS: ASPirin 81 mg TAB PO SCH (10:04)
[2023-06-03] MEDS: MORPHINE SULF 30 mg ER tab PO SCH (10:05)
[2023-06-03] MEDS: SERTRALINE HCL 50 MG TAB PO SCH (10:05)
[2023-06-03] MEDS: OXcarbazepine 300 MG TAB PO SCH (10:06)
[2023-06-03] MEDS: ATENOLOL 50 MG TAB PO SCH (10:06)
[2023-06-03] MEDS: PANTOPRAZOLE 40 MG TAB PO SCH (10:06)
[2023-06-03] MEDS: amLODIPine BESYLATE 5 MG TAB PO SCH (10:07)
[2023-06-03 13:00] VITALS: BP 126/84; PULSE 97; RESP 18; TEMP 98.4; O2SAT 100
[2023-06-03] MEDS: traMADol HCL 50 MG TAB PO PRN (13:18)
[2023-06-03 16:33] VITALS: BP 107/63; PULSE 94; RESP 16; TEMP 36.9; O2SAT 96
[2023-06-03 17:00] VITALS: BP 113/59; PULSE 84; RESP 18; TEMP 98.5; O2SAT 96
== END 2023-06-03 18:10 | disposition home health service (06) | DRG 812 ==
LOC: EDBD 17:07 → ER 17:07 → TELE 23:29 → TELE-EAST 05-30 14:14 → EAST 06-01 05:39
PROVIDERS: ADMIT Internal Medicine Geriatric Medicine; ATTEND Student in an Organized Health Care Education/Training Program
DX: T40.2X1A Poisoning by other opioids, accidental (unintentional), initial encounter (principal); G92.8 Other toxic encephalopathy; N17.9 Acute kidney failure, unspecified; F31.9 Bipolar disorder, unspecified; I95.9 Hypotension, unspecified; E11.9 Type 2 diabetes mellitus without complications; N39.0 Urinary tract infection, site not specified; K52.9 Noninfective gastroenteritis and colitis, unspecified; E03.9 Hypothyroidism, unspecified; E78.5 Hyperlipidemia, unspecified; I10 Essential (primary) hypertension; K59.09 Other constipation; E66.8 Other obesity; G89.29 Other chronic pain; E83.42 Hypomagnesemia; Y92.89 Other specified places as the place of occurrence of the external cause; Z68.30 Body mass index [BMI] 30.0-30.9, adult
CPT/HCPCS: 36415; 36600; 70450; 71045; 74176; 74178; 80048; 80053; 80061; 80307; 80320; 81001; 82805; 82962; 83036; 83605; 83735; 84443; 84484; 85025; 87040; 87086; 93306; 93886; 96365; 96366; 96367; 96375; 97110; 97116; 97163; 97530; G0378; J0696; J1815; J2405; J3490